=== PATIENT | female | born 1995 | race African-American/Black ===

== ENCOUNTER 2016-11-08 18:46 | Emergency (ER) | payer SELFPAY ==
[~2016-11-08] VITALS: Ht 172.7 cm; Wt 118.2 kg
[~2016-11-08 18:46] MED LIST: AMOXICILLIN 8751 TAB PO; LORTAB 5/500 501 TAB PO; NEXPLANON68 MG ID; NO HOME MEDICATIONS; PEN-VEE K500 MG PO; PERCOCET 325 MG1 TA2 PO; PRENATAL1 TA2 PO
[2016-11-08 18:48] VITALS: BP 128/70; PULSE 78; TEMP 98.7
[2016-11-08] MEDS ORDERED: AMOXICILLIN 8751 TAB PO (19:19)
== END 2016-11-08 19:43 | disposition home or self-care (01) ==
LOC: COL.ER 18:46
DX: S71.131A Puncture wound without foreign body, right thigh, initial encounter (principal); Z23 Encounter for immunization; W54.0XXA Bitten by dog, initial encounter; Y92.007 Garden or yard of unspecified non-institutional (private) residence as the place of occurrence of the external cause

== ENCOUNTER 2017-06-04 10:14 | Emergency (ER) | payer SELFPAY ==
[~2017-06-04] VITALS: Ht 172.7 cm; Wt 122.7 kg
[2017-06-04 10:17] VITALS: BP 140/94; PULSE 73; TEMP 98.4
[2017-06-04 11:11] LABS: COLLECTION METHOD CLEAN CATCH
[2017-06-04 11:31] LABS: MUCOUS Present /lpf; PH 7 (5-8); URINE APPEARANCE Clear; URINE BACTERIA None Seen /hpf; URINE BILIRUBIN Negative (NEGATIVE); URINE BLOOD Negative (NEGATIVE); URINE COLOR Yellow; URINE GLUCOSE Negative (NEGATIVE); URINE KETONE Negative (NEGATIVE); URINE LEUKOCYTE ESTERASE Negative (NEGATIVE); URINE PROTEIN(semi-quant) 1+ (NEGATIVE); URINE RBC 0-2 /hpf; URINE WBC 0-2 /hpf
[2017-06-04 11:51] LABS: BASO % 0.2 % (0.0-2.0); EOS # 0.1 (0.0-0.7); EOS % 2.6 % (0-4.0); GRAN # 2.9 (1.4-6.5); GRAN % 58.7 % (42.2-75.2); HEMATOCRIT 37.5 % (37.0-47.0); LYMPH # 1.8 (1.2-3.4); LYMPH % 35.1 % (20.0-51.0); MEAN CELL VOLUME 86 fl (80.0-100.0); MEAN CORPUSCULAR HEMOGLOBIN 27 pg (27.0-31.0); MEAN CORPUSCULAR HGB CONC 32 g/dl (33.0-37.0); MEAN PLATELET VOLUME 10.7 fl (7.4-10.4); MONO # 0.2 (0.1-0.6); MONO % 3.2 % (1.7-9.3); PLATELET COUNT 215 K/mm3 (130-400); RED BLOOD COUNT 4.34 M/mm3 (4.10-5.30)
[2017-06-04 11:56] LABS: HEMOGLOBIN 11.9 g/dl (12.5-16.0)
[2017-06-04 11:57] LABS: ADJUSTED CALCIUM 8.6 mg/dL (8.4-10.2); ALANINE AMINOTRANSFERASE 30 U/L (9-52); ALKALINE PHOSPHATASE 52 U/L (50-136); ANION GAP 9 mmol/L (7-16); BILIRUBIN,TOTAL 0.5 mg/dL (0.0-1.0); BLOOD UREA NITROGEN 11 mg/dL (7-17); C-REACTIVE PROTEIN < 0.5 mg/dL (0.0-0.9); CALCIUM 8.6 mg/dL (8.4-10.2); CARBON DIOXIDE 23 mmol/L (22-30); CHLORIDE 106 mmol/L (98-107); CREATININE, serum 0.71 mg/dL (0.52-1.25); GLUCOSE 91 mg/dL (74-106); LIPASE 66 U/L (23-300); POTASSIUM 3.7 mmol/L (3.4-5.0); SODIUM 138 mmol/L (137-145); TOTAL PROTEIN 7.6 gm/dL (6.4-8.2)
[2017-06-04] MEDS ORDERED: ZOFRAN ODT4 MG PO (12:23)
== END 2017-06-04 12:40 | disposition home or self-care (01) ==
LOC: COL.ER 10:14
PROVIDERS: Emergency Medicine; Nurse Practitioner
DX: R10.11 Right upper quadrant pain (principal)
CPT/HCPCS: J1170; J2405; J7030

== ENCOUNTER 2017-06-05 12:42 | Emergency (ER) | payer SELFPAY ==
[~2017-06-05] VITALS: Ht 172.7 cm; Wt 122.7 kg
[~2017-06-05 12:42] MED LIST changes: +ZOFRAN ODT4 MG PO
[2017-06-05 12:45] VITALS: BP 142/95; TEMP 98.4
[2017-06-05 13:35] LABS: BASO % 0.1 % (0.0-2.0); EOS # 0.1 (0.0-0.7); EOS % 1.6 % (0-4.0); GRAN # 4.4 (1.4-6.5); GRAN % 65.2 % (42.2-75.2); LYMPH # 1.9 (1.2-3.4); LYMPH % 28.4 % (20.0-51.0); MEAN CELL VOLUME 86 fl (80.0-100.0); MEAN CORPUSCULAR HGB CONC 32 g/dl (33.0-37.0); MEAN PLATELET VOLUME 10.4 fl (7.4-10.4); MONO # 0.3 (0.1-0.6); MONO % 4.4 % (1.7-9.3); PLATELET COUNT 263 K/mm3 (130-400); RED BLOOD COUNT 4.14 M/mm3 (4.10-5.30); WHITE BLOOD COUNT 6.8 K/mm3 (4.8-10.8)
[2017-06-05 13:36] LABS: HEMATOCRIT 35.7 % (37.0-47.0); HEMOGLOBIN 11.3 g/dl (12.5-16.0); MEAN CORPUSCULAR HEMOGLOBIN 27 pg (27.0-31.0)
[2017-06-05 13:40] LABS: ADJUSTED CALCIUM 8.6 mg/dL (8.4-10.2); ALBUMIN 3.9 gm/dL (3.5-5.0); BILIRUBIN,TOTAL 0.5 mg/dL (0.0-1.0); CALCIUM 8.5 mg/dL (8.4-10.2); CREATININE, serum 0.7 mg/dL (0.52-1.25); POTASSIUM 3.7 mmol/L (3.4-5.0); TOTAL PROTEIN 7.5 gm/dL (6.4-8.2)
[2017-06-05 15:13] VITALS: PULSE 65
== END 2017-06-05 15:18 | disposition home or self-care (01) ==
LOC: COL.ER 12:42
PROVIDERS: Physician Assistant
DX: R07.9 Chest pain, unspecified (principal)
CPT/HCPCS: J1170; J2405; J7030

== ENCOUNTER 2017-09-03 19:42 | Emergency (ER) | payer SELFPAY ==
[~2017-09-03] VITALS: Ht 172.7 cm; Wt 122.7 kg
[2017-09-03 19:43] VITALS: BP 147/95; TEMP 98.5
[2017-09-03] MEDS ORDERED: AMOXICILLIN875 MG PO (19:47)
[2017-09-03 22:07] VITALS: PULSE 78
== END 2017-09-03 22:00 | disposition home or self-care (01) ==
LOC: COL.ER 19:42
DX: S83.91XA Sprain of unspecified site of right knee, initial encounter (principal); K21.9 Gastro-esophageal reflux disease without esophagitis; K58.9 Irritable bowel syndrome, unspecified; Z87.42 Personal history of other diseases of the female genital tract; X58.XXXA Exposure to other specified factors, initial encounter; Y93.63 Activity, rugby
CPT/HCPCS: L1846

== ENCOUNTER 2018-07-16 05:58 | Emergency (ER) | payer BC ==
[~2018-07-16] VITALS: Ht 172.7 cm; Wt 115.9 kg
[~2018-07-16 05:58] MED LIST changes: +AMOXICILLIN875 MG PO
[2018-07-16 06:02] VITALS: BP 135/89; TEMP 98.3
[2018-07-16] MEDS ORDERED: ZITHROMAX Z PA250 MG PO (07:25)
[2018-07-16 07:37] VITALS: PULSE 80
== END 2018-07-16 07:43 | disposition home or self-care (01) ==
LOC: COL.ER 05:58
DX: H66.92 Otitis media, unspecified, left ear (principal); Z98.890 Other specified postprocedural states

== ENCOUNTER 2019-02-08 01:26 | Emergency (ER) | payer BC ==
[~2019-02-08] VITALS: Ht 170.2 cm; Wt 115.9 kg
[~2019-02-08 01:26] MED LIST changes: +ZITHROMAX Z PA250 MG PO
[2019-02-08 01:42] VITALS: TEMP 98.5
[2019-02-08] MEDS ORDERED: AMOXICILLIN 50500 MG PO (02:43)
[2019-02-08 03:15] VITALS: BP 156/84; PULSE 84
== END 2019-02-08 02:55 | disposition home or self-care (01) ==
LOC: COL.ER 01:26
DX: K02.9 Dental caries, unspecified (principal)